=== PATIENT | male | born 1995 | race Two or more races ===

== ENCOUNTER 2020-07-12 14:42 | Emergency (ER) | payer BC ==
[~2020-07-12] VITALS: Ht 172.7 cm; Wt 61.2 kg
--- NOTE | 2020-07-12 15:02 | NUR ---
urine sample sent to lab at this time
--- NOTE | 2020-07-12 15:11 | NUR ---
at bedside for assessment
[2020-07-12] MEDS ORDERED: CEFTRIAXONE 500 MG VIAL IM ONE (15:30)
[2020-07-12] MEDS ORDERED: CEFTRIAXONE 500 MG VIAL ONE (15:42)
[2020-07-12] MEDS ORDERED: LIDOCAINE HCL 1% 20 ML VIAL ONE (15:42)
[2020-07-12] MEDS ORDERED: DOXY50CA2 PO (15:47)
--- NOTE | 2020-07-12 15:57 | NUR ---
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
--- NOTE | 2020-07-12 17:02 | NUR ---
Patient discharged to home in stable condition. Patient noted walking with steady gait, took all belongings, no signs of distress. Written and verbal after care instructions given. Patient verbalizes understanding of instructions. Stressed follow up or return to ER for worsening s/s.
[2020-07-12 17:27] VITALS: BP 119/74
== END 2020-07-12 17:00 | disposition home or self-care (01) ==
LOC: ER 14:49
DX: N41.0 Acute prostatitis (principal); Z72.51 High risk heterosexual behavior; J45.909 Unspecified asthma, uncomplicated; Z20.2 Contact with and (suspected) exposure to infections with a predominantly sexual mode of transmission
CPT/HCPCS: 76870; 87491; 96372; 99284; J0696; J3490; A4663

== ENCOUNTER 2020-08-05 00:21 | Emergency (ER) | payer BC ==
[~2020-08-05] VITALS: Ht 172.7 cm; Wt 63.5 kg
[~2020-08-05 00:21] MED LIST: DOXY50CA2 PO
--- NOTE | 2020-08-05 00:43 | NUR ---
MD Cho in room to do MSE.
[2020-08-05 01:11] LABS: *BILIRUBIN,URIN NEGATIVE (NEGATIVE); *BLOOD, URINE NEGATIVE (NEGATIVE); *CLARITY,URINE CLEAR (CLEAR); *COLOR,URINE YELLOW (YELLOW); *KETONES,URINE NEGATIVE (NEGATIVE); *UROBILINOGEN,URINE 0.2 E.U./dl (NORMAL); LEUKOCYTE ESTERASE ,URINE NEGATIVE (NEGATIVE); NITRITE, URINE NEGATIVE (NEGATIVE); PH,URINE 7.5 (5.0-8.0); UGLUCOSE NEGATIVE (NEGATIVE)
[2020-08-05 01:30] VITALS: BP 120/82
--- NOTE | 2020-08-05 01:30 | NUR ---
Patient discharged to home in stable condition. Written and verbal after care instructions given. Patient verbalizes understanding of instructions. Stressed follow up or return to ER for worsening s/s. Patient ambulates with steady gait, received copy of labs, v/s stable, left with all personal belongings.
== END 2020-08-05 01:30 | disposition home or self-care (01) ==
LOC: ER 00:26
DX: R30.0 Dysuria (principal); R59.0 Localized enlarged lymph nodes; J45.909 Unspecified asthma, uncomplicated; Z86.19 Personal history of other infectious and parasitic diseases
CPT/HCPCS: A4663